=== PATIENT | female | born 1995 | race African-American/Black ===

== ENCOUNTER 2023-01-08 12:14 | Emergency (ER) | payer OTHER ==
[~2023-01-08] VITALS: Ht 154.9 cm; Wt 59.0 kg
[2023-01-08] MEDS ORDERED: predniSONE 20 MG TABLET ONE (13:28)
[2023-01-08] MEDS ORDERED: diphenhydrAMINE 50 MG CAPSULE ONE (13:28)
[2023-01-08] MEDS ORDERED: DIPH28.33 TP (13:29)
[2023-01-08] MEDS ORDERED: PERM60CR4 TP (13:29)
[2023-01-08] MEDS ORDERED: diphenhydrAMINE 50 MG CAPSULE PO ONE (13:30)
[2023-01-08] MEDS ORDERED: predniSONE 20 MG TABLET PO ONE (13:30)
[2023-01-08 13:48] VITALS: BP 122/70; TEMP 98; O2SAT 99
== END 2023-01-08 13:49 | disposition home or self-care (01) ==
LOC: ER 12:14
DX: R21 Rash and other nonspecific skin eruption (principal); L29.9 Pruritus, unspecified; Z88.0 Allergy status to penicillin; Z88.8 Allergy status to other drugs, medicaments and biological substances; Z88.5 Allergy status to narcotic agent
CPT/HCPCS: 99283; Q0163; J7512; A4663